=== PATIENT | male | born 1965 | race Caucasian/White ===

== ENCOUNTER → 2016-07-19 | Outpatient (CLI) | payer OTHER ==
--- NOTE | 2016-07-19 16:24 | DX ---
Lumbar spine with flexion and extension 4 views History: evaluate surgical fusion. Findings: Compared June 30, 2014. Left pedicle screws at L4, L5, and S1 are joined by a molded po sterior fusion bar. Posterior clamps fuse the spinous processes at L4-L5 and L5-S1. Opaque markers of intervertebral grafts are found in the interspaces at L4-L5 and L5-S1, unchanged. Attempted flexion and extension causes little change of position of lumbar spine, with no subluxation. No compression f racture. Intervertebral disks have normal height. Impression: Anterior and posterior fusion at L4-L5 and L5-S1. Diminished range of motion; no evidence of instability.
== END ==
LOC: FLAB 15:50
PROVIDERS: ATTEND Physician Assistant Surgical
DX: Z98.1 Arthrodesis status (principal); M43.26 Fusion of spine, lumbar region; M43.27 Fusion of spine, lumbosacral region